=== PATIENT | female | born 1955 | race Caucasian/White ===

== ENCOUNTER 2019-11-27 23:10 | Emergency (ER) | payer BC ==
[~2019-11-27] VITALS: Ht 162.6 cm; Wt 108.9 kg
[~2019-11-27 23:10] MED LIST: GENTAMICIN SU3 MG/ML OPHTHALMIC; PREDNISONE 10 M10 M1 PO; TESSALON200 MG PO; VENTOLIN HFA 1818 GM INH; ZPAK PO
[2019-11-28 00:01] LABS: ABSOLUTE BASOPHILS 0.1 thou/uL (0.0-0.2); ABSOLUTE EOSINOPHILS 0.1 thou/uL (0.0-0.7); ABSOLUTE LYMPHOCYTES 2.1 thou/uL (0.8-5.3); ABSOLUTE MONOCYTES 0.5 thou/uL (0.0-1.2); ABSOLUTE NEUTROPHILS 6.4 thou/uL (1.6-8.1); BASOPHILS 0.8 %; EOSINOPHILS 1.1 %; HEMOGLOBIN 14.8 gm/dL (12.0-15.0); LYMPHOCYTES 22.9 %; MCH 32.4 pg (26.0-34.0); MCHC 35.2 g/dL (28.0-37.0); MCV 92.2 fL (80.0-100.0); MONOCYTES 5.6 %; MPV 9.2 fl. (7.2-11.1); NUCLEATED RBCS 0 /100WBC; PLATELET COUNT* 189 thou/uL (150-400); POLYS 69.6 %; RBC 4.55 mil/uL (4.20-5.00); RDW-CV 13.3 % (10.5-14.5); URINE BILIRUBIN NEGATIVE (Negative); URINE BLOOD TRACE (Negative); URINE CLARITY CLEAR; URINE COLOR YELLOW; URINE GLUCOSE-RANDOM NEGATIVE (Negative); URINE KETONES NEGATIVE (Negative); URINE LEUKOCYTES-REFLEX 1+ (Negative); URINE NITRITE-REFLEX NEGATIVE (Negative); URINE PROTEIN NEGATIVE (Negative); URINE SPECIFIC GRAVITY 1.025 (1.005-1.030); URINE UROBILINOGEN 0.2 E.U./dl (0.2-1.0); WBC 9.2 thou/uL (4.0-11.0)
[2019-11-28 00:13] LABS: BACTERIA-REFLEX >30 Many /HPF (None Seen); CRYSTALS None Seen /LPF (None Seen); HYALINE CASTS 0-3 Few /LPF (None Seen); SQUAMOUS >10 Many /LPF (0-3); URINE RBC 0-2 Rare /HPF (0-2); URINE WBC-REFLEX 6-15 Few /HPF (0-5)
[2019-11-28 00:44] LABS: CALCIUM 9.5 mg/dL (8.5-10.1); CREATININE 1.1 mg/dL (0.6-1.3); POTASSIUM 4.6 mmol/L (3.5-5.1)
[2019-11-28 00:49] LABS: TOTAL BILIRUBIN 0.4 mg/dL (<0.1-1.0)
[2019-11-28] MEDS ORDERED: NORCO 5-325 TA1 EAC1 PO (00:53)
[2019-11-28] MEDS ORDERED: CIPROFLOXACIN500 M1 PO (00:53)
[2019-11-28 01:09] VITALS: BP 150/85
--- NOTE | 2019-11-28 12:57 | EKG ---
[place] [address] ELECTROCARDIOGRAM REPORT Name: JACQUES KEY [id number] Admission: 11/27/19 Attend Phys: Discharge: 11/28/19 Date of : 55 Date of Service: 11/28/1930 Report #: [id number] THIS REPORT FOR: //name// [facility] ED Test Date: 2019-11-28 Test Time: 00:31:55 Pat Name: JACQUES KEY Department: Room: Gender: F [place] Driver: DELILAH : 1955 Requested By: GUS Order Number: [id number] MD: Bennett Raya Measurements Intervals [place] Rate: 67 P: 39 PA: 138 QRS: 39 QRSD: 90 T: 21 QT: 418 QTc: 442 Interpretive Statements Sinus rhythm No previous ECG available for comparison Electronically Signed On 11-28-2019 12:55:07 CDT by Bennett Raya [email or web address] <ELECTRONICALLY SIGNED> By: Bennett Raya MD, [facility] 11/28/19 1255 Bennett Raya MD, FACC /EPI
== END 2019-11-28 01:10 | disposition home or self-care (01) ==
LOC: M.ERS 23:10
PROVIDERS: Family Medicine
DX: N39.0 Urinary tract infection, site not specified (principal); R10.84 Generalized abdominal pain; J45.909 Unspecified asthma, uncomplicated; F17.210 Nicotine dependence, cigarettes, uncomplicated; Z85.038 Personal history of other malignant neoplasm of large intestine; Z90.49 Acquired absence of other specified parts of digestive tract; Z91.040 Latex allergy status; Z91.013 Allergy to seafood; Z88.8 Allergy status to other drugs, medicaments and biological substances

== ENCOUNTER → 2019-12-29 | Day surgery (SDC) | payer BC ==
[~2019-12-29] MED LIST changes: +CIPROFLOXACIN500 M1 PO; +NOHOMEMEDICATIONS; +NORCO 5-325 TA1 EAC1 PO
[2019-12-29 07:38] LABS: HEMATOCRIT 43.2 % (37.0-47.0); HEMOGLOBIN 14.9 gm/dL (12.0-15.0); MCH 31.7 pg (26.0-34.0); MCHC 34.5 g/dL (28.0-37.0); MCV 92.1 fL (80.0-100.0); MPV 8.3 fl. (7.2-11.1); RBC 4.69 mil/uL (4.20-5.00); RDW-CV 13.4 % (10.5-14.5)
[2019-12-29 07:44] LABS: CREATININE 0.9 mg/dL (0.6-1.3); POTASSIUM 3.9 mmol/L (3.5-5.1)
--- NOTE | 2019-12-29 11:02 | OP ---
[address] [address] OPERATIVE REPORT Name: JACQUES KEY Room: [facility].#: [id number] Admission: 12/29/19 Attend Phys: Lauren Ellison DO Discharge: Date of : 55 Report #: [id number] THIS REPORT FOR: //name// cc: Joseline Preciado Linda J. DO ~ THIS REPORT FOR: //name// CC: Lauren Preciado DO DICTATED BY: Levi Light DO DATE OF SERVICE: 12/29/2019 PREOPERATIVE DIAGNOSIS: Ventral hernia. POSTOPERATIVE DIAGNOSIS: Ventral hernia. PROCEDURE PERFORMED: Repair of incarcerated ventral hernia with mesh and partial omentectomy. SURGEON: Lauren Ellison DO CO-SURGEON: Levi Light DO, PGY3 ADVISOR TO COMMAND IN COMBAT: None. ESTIMATED BLOOD LOSS: 20. ANESTHESIA: General and local and regional. SPECIMENS REMOVED: Omentum and hernia sac. COMPLICATIONS: None. FINDINGS: About 2 x 3 cm incarcerated ventral hernia in the epigastric region. A large amount of omentum was incarcerated in the hernia, small defect was also noted at the umbilicus. HISTORY OF PRESENT ILLNESS: The patient is a 64-year-old female with history of appendectomy, cholecystectomy and sigmoidectomy who presented with a bulge above her umbilicus. She had been to the ED and had a CT scan. CT scan did show a ventral hernia. Therefore, we elected to proceed with surgery. Risks, benefits and alternatives of ventral hernia repair with mesh were discussed at length and she [facility] [address] [place] [address] OPERATIVE REPORT Name: JACQUES KEY Room: [facility].#: [id number] Admission: 12/29/19 Attend Phys: Lauren Ellison DO Discharge: Date of : 55 Report #: [id number] agreed to proceed with surgery. DESCRIPTION OF PROCEDURE: After consent was obtained, the patient was taken to the operating room and placed in the supine position. SCDs applied to bilateral lower extremities. Safety belt placed across the patient's waist. Antibiotics were given for surgical prophylaxis. General endotracheal anesthesia was administered without any complication. Bilateral TAP blocks were performed by Anesthesia prior to the start of surgery. DESCRIPTION OF PROCEDURE: The patient's abdomen was then prepped and draped in the standard sterile fashion. A timeout was performed confirming patient and procedure. A 10 mL of 0.5% Marcaine was injected just above the hernia defect. A 10-blade scalpel was used to make an incision vertically over the hernia defect. Electrocautery was used for hemostasis and dissected down to the level of the hernia where the hernia was encountered. It was circumferentially dissected down to the level of the fascia with a combination of electrocautery and blunt dissection with hemostat. Once the fascia was encountered, it was grasped between 2 Kochers and elevated. There was a significant amount of herniated omentum that appeared to be incarcerated. Therefore, we carefully dissected down to the level of the hernia sac, entered the hernia sac and circumferentially removed the hernia sac from the underlying contents. Once the contents were freed from the anterior abdominal wall, it was attempted to reduce the contents. However, there were 2 small hernia defects to reduce contents. At this point, we then transected the omentum at the level of the fascia and hemostasis was ensured with electrocautery. Omentum was sent and hernia sac was sent for pathologic evaluation. At this point, the fascial edges were cleared off using electrocautery. The fascial defect was measured to be 2 x [address] cm[address] We elected to place a 6.[address] mesh in the abdomen. Once the mesh was placed, it was anchored to the anterior abdominal wall. Two stitches of 0 Prolene were placed at the East and West positions of the mesh and with care to incorporate fascia. Once the mesh was secured, we then closed the fascia over top in a transverse fashion using 2 stitches of 0 Prolene in a vjxdyq-en-qzups fashion. The mesh was secured and there was no evidence of any herniation around the mesh. We injected 10 more mL of 0.5% Marcaine into the fascial plane. We reapproximated the subcutaneous tissue in a layered closure using 3-0 Vicryl and all skin incision was closed with 4-0 Monocryl in running subcuticular fashion. Sterile skin glue was applied over top. All needle, instrument, and sponge counts were correct at the end of the case. The patient was awoken from general anesthesia and transferred to PACU in stable condition. <ELECTRONICALLY SIGNED> By: Lauren Ellison DO 12/29/19 1102 [id number] [id number] Ellison DO /nt
--- NOTE | 2019-12-29 15:41 | EKG ---
[place] [address] ELECTROCARDIOGRAM REPORT Name: MARV KEYLYN Room: [facility]#: [id number] Admission: 12/29/19 Attend Phys: Lauren Ellison, Discharge: Date of : 55 Date of Service: 12/29/1934 Report #: [id number] THIS REPORT FOR: //name// [facility] Test Date: 2019-12-29 Test Time: 07:34:42 Pat Name: JACQUES KEY Department: Room: Gender: [place] Attendant: [facility] : 1955 Requested By: Lauren Ellison Order Number: [id number] Denice MD: Brooks Benton Measurements Intervals [place] Rate: 65 P: 35 KS: 144 QRS: 37 QRSD: 92 T: 31 QT: 424 QTc: 441 Interpretive Statements Sinus rhythm Compared to ECG 11/28/2019 00:31:55 No significant changes Electronically Signed On 12-29-2019 15:40:27 CDT by Brooks Benton [email or web address] <ELECTRONICALLY SIGNED> By: Brooks Benton MD, [facility] 12/29/19 1540 3 3 Brooks Benton MD, FAC /EPI
--- NOTE | 2019-12-30 19:07 | PATH ---
[address] [address] PATHOLOGY RPT PROCEDURE Name: JUANCARLOS KEYN Room: [facility] Francisco Javier.#: [id number] Admission: 12/29/19 Date of : 55 Discharge: Report #: [id number] Path Case #: [id number] [facility] Accession Number: [id number] . 01 Material submitted: . hernia - PORTION OF OMENTUM AND HERNIA SAC . 01 Clinical history: . Ventral hernia . 02 Diagnosis: "Portion of omentum and hernia sac", hernia repair and partial omentectomy: - Omentum, 13.6 cm, with vascular congestion, focal fibrosis and reactive mesothelium. - Hernia sac showing vascularized fibroadipose connective tissue with mesothelial lining, focal fibrosis, acute and chronic inflammation and reactive mesothelial hyperplasia. (CLW:kamille; 12/30/2019) [facility] [place] 12/30/2019 1427 Local . 02 Electronically signed: . Aleah Joshi MD, Pathologist NPI- [id number] . 01 Gross description: . The specimen is received in formalin, labeled "Irina Key, portion of omentum and hernia sac". Received are several segments of fibromembranous tissue measuring 4.3 x 3.5 x 1.7 cm in aggregate dimensions. No distinct nodules or lesions are noted grossly. Also received within the specimen container is a moderate amount of omentum measuring 13.6 x 3.7 x 3.2 cm in greatest dimensions. Sectioning reveals bright yellow, lobulated cut surfaces with no grossly distinct nodules or lesions. The specimen is submitted representatively in cassette A1. (CAA; 12/29/2019) QAC/QAC 12/30/2019 1426 Local . 02 Pathologist provided ICD-10: K43.9 . 02 CPT . 119124, 066969 Specimen Comment: A courtesy copy of this report has been sent to [phone], [phone] Specimen Comment: [id number] Specimen Comment: Report sent to / DR MORAN Performed at: [address] [place] [address] PATHOLOGY RPT PROCEDURE Name: IRINA KEY Room: [facility].#: [id number] Admission: 12/29/19 Date of : 55 Discharge: Report #: [id number] Path Case #: [id number] [address] [facility] [address], [place] [id number] MD Asher Keys MD Phone: [phone] Performed at: [address] [place] [id number] MD Hu Malave MD Phone: [phone]
== END | disposition home or self-care (01) ==
LOC: M.SUR 07:14
PROVIDERS: ATTEND Surgery
DX: K43.6 Other and unspecified ventral hernia with obstruction, without gangrene (principal); K66.8 Other specified disorders of peritoneum; Z11.59 Encounter for screening for other viral diseases; Z98.890 Other specified postprocedural states; Z79.899 Other long term (current) drug therapy; Z91.040 Latex allergy status; Z88.8 Allergy status to other drugs, medicaments and biological substances

== ENCOUNTER → 2021-07-06 | Outpatient (CLI) | payer OTHER | LOC: M.RAD 10:09 | PROVIDERS: ATTEND Family Medicine | DX: Z12.31 Encounter for screening mammogram for malignant neoplasm of breast (principal) ==